=== PATIENT | female | born 1940 | race Caucasian/White ===

== ENCOUNTER 2017-02-02 16:00 | Outpatient (CLI) | payer MEDICARE, OTHER ==
[~2017-02-02] VITALS: Ht 154.9 cm; Wt 60.9 kg
[2017-02-02 16:08] VITALS: BP 123/61; PULSE 86; RESP 18; Ht 154.9 cm; Wt 60.9 kg
[2017-02-02] MEDS ORDERED: DILT180C81 PO (16:16)
[2017-02-02] MEDS ORDERED: TIOT18CA INHALATION (16:16)
[2017-02-02] MEDS ORDERED: APIX5TAB PO (16:16)
[2017-02-02] MEDS ORDERED: FLUT1BLS INHALATION (16:16)
[2017-02-02] MEDS ORDERED: LOSA50TA6 PO (16:16)
[2017-02-02] MEDS ORDERED: ATOR20TA38 PO (16:16)
[2017-02-02] MEDS ORDERED: FURO-110 PO (16:16)
[2017-02-02] MEDS ORDERED: LEVA15HF6 INH (16:16)
[2017-02-02] MEDS ORDERED: ASPI-664 PO (16:16)
--- NOTE | 2017-02-02 17:34 | PN ---
Date/Time of Note Date/Time of Note DATE: 02/02/17 TIME: 17:23 Assessment/Plan Assessment/Plan Assessment/Plan [facility] Progress Note Date of Service: 02/02/17 Today's Impression & Plan: Clinically stable and doing well. No major post operative issues. No wound problems. 1. F/u with PCP 2. F/u with us prn Thank you very much for allowing us to participate in the care of this very nice patient and wonderful family. If there are any questions, please feel free to contact me at . Total visit time: 20 minutes, of which more than half was spent in [id number] discussion with the patient, possibly including time to discuss issues with family, as well as coordination of care with multiple other physicians and providers. Please note: Spelling or grammatical errors in this note are likely due to EHR/ dictation systems and are not reflective of patient care quality. Also please note that the dictation timestamp of this note does not necessarily reflected time of the visit for this service. Updated Clinical Summary: A very pleasant 76-year-old gentleman with comorbid issues including BMI of 26.6 as well as recent prior left carotid endarterectomy, admitted to [facility] through the emergency department on 2016 with abdominal pain of unclear etiology with normal laboratory values as well as normal CT scan. S/p lap leonel for perforated GB with pus 01/17/17. Final path showed no malignancy. COMORBIDITIES: 1. Carotid artery disease status post left carotid endarterectomy in 11/2016. 2. Chronic gastroesophageal reflux disease, treated with Protonix. 3. Chronic diastolic heart failure. 4. Hypertension. 5. History of transient ischemic attack. 6. Hypertensive urgency. 7. Hyperlipidemia. 8. Paroxysmal atrial fibrillation. 9. BMI 26.6. 10.Prior endoscopies and colonoscopy 2011. 11. S/p lap leonel for perforated GB with pus 01/17/17. Final path showed no malignancy. Subjective: No major events or complaints since discharge. No major pain complaints and no longer on pain medications. No N/V, SOB or CP. + bowel activity Objective: Vitals: reviewed; please also see EHR Physical Exam: Lungs: breathing comfortably without tachypnea; - wheezes, rales or rhonchi on gross exam Abd: Soft, minimal to no tenderness to palpation in the RUQ, and non-distended; no peritoneal signs or guarding; incisions c/d/i w/o obvious e/e/d/h. Skin: Appears pink and feels warm to touch. Neuro: Awake, alert and follows commands appropriately Exam/Review of Systems Vital Signs Vitals Vital Signs Date Time Temp Pulse Resp B/P Pulse Ox O2 Delivery O2 Flow Rate FiO2 02/02/17 16:08 97.8 86 18 123/61 94 Room Air ROSS BRITT M.D. Feb 02, 2017 17:34
== END 2017-02-02 16:59 | disposition home or self-care (01) ==
LOC: HPC 16:00
PROVIDERS: ATTEND Transplant Surgery
DX: Z09 Encounter for follow-up examination after completed treatment for conditions other than malignant neoplasm (principal); K21.9 Gastro-esophageal reflux disease without esophagitis; I11.0 Hypertensive heart disease with heart failure; I50.32 Chronic diastolic (congestive) heart failure; Z86.73 Personal history of transient ischemic attack (TIA), and cerebral infarction without residual deficits; I16.0 Hypertensive urgency; E78.5 Hyperlipidemia, unspecified; I48.0 Paroxysmal atrial fibrillation; Z90.49 Acquired absence of other specified parts of digestive tract; Z86.79 Personal history of other diseases of the circulatory system
CPT/HCPCS: G0463